=== PATIENT | female | born 1965 | race Two or more races ===

== ENCOUNTER 2017-02-17 22:10 | Emergency (ER) | payer OTHER ==
[2017-02-17 22:43] VITALS: TEMP 98.4
[2017-02-17 23:00] LABS: BASOPHILS % (AUTO) 1 % (0-3); EOSINOPHILS % (AUTO) 3 % (0-9); HEMATOCRIT 39 % (35-47); MEAN CORPUSCULAR HGB CONC 34.3 gm/dl (32.0-36.0); MEAN CORPUSCULAR VOLUME 86 fL (81-99); MONOCYTES % (AUTO) 7.6 % (0-12); NEUTROPHILS % (AUTO) 55.3 % (37-80)
[2017-02-17 23:24] LABS: ALBUMIN 3.7 gm/dl (3.4-5.0); ALT 28 IU/L (14-63); CALCIUM 8.9 mg/dl (8.5-10.1); GLOM FILT RATE 103 mL/min (>60); POTASSIUM 3.5 mMol/L (3.5-5.1); SODIUM 139 mMol/L (136-145); THYROID STIMULATING HORMONE 2.041 uIU/ml (0.358-3.740)
[2017-02-17 23:31] LABS: APPEARANCE,URINE Clear; BILIRUBIN,URINE NEGATIVE (NEGATIVE); COLOR,URINE Light yellow; GLUCOSE, URINE (UA) NEGATIVE (NEGATIVE); KETONES,URINE NEGATIVE (NEGATIVE); LEUKOCYTE ESTERASE ,URINE TRACE (NEGATIVE); NITRATE,URINE NEGATIVE (NEGATIVE); OCCULT BLOOD,URINE TRACE INTACT (NEG-TRACE); UROBILINOGEN,URINE 0.2 (0.2-1.0 EU)
[2017-02-18 00:02] LABS: RBC,URINE 0-1 (0-3AV/HPF)
[2017-02-18 00:03] VITALS: RESP 20
[2017-02-18 00:07] VITALS: BP 146/63; PULSE 54; O2SAT 94
== END 2017-02-17 23:59 | disposition home or self-care (01) | DRG 149 ==
LOC: ED 22:10
DX: R42 Dizziness and giddiness (principal)
CPT/HCPCS: 36415; 71020; 80053; 81001; 84443; 84484; 85025; 93005; 99283; 99284

== ENCOUNTER 2018-01-29 22:41 | Emergency (ER) | payer OTHER ==
[2018-01-29 22:50] VITALS: TEMP 97.6
[2018-01-29] MEDS ORDERED: TRAMADOL HYDROCHLORIDE 50 MG TAB PO ONE (23:08)
[2018-01-29] MEDS ORDERED: TRAMADOL HYDROCHLORIDE 50 MG TAB ONE (23:14)
[2018-01-29 23:31] VITALS: BP 133/74; PULSE 64; RESP 16; O2SAT 97
== END 2018-01-29 23:27 | disposition home or self-care (01) | DRG 563 ==
LOC: ED 22:41
DX: S86.812A Strain of other muscle(s) and tendon(s) at lower leg level, left leg, initial encounter (principal); Y93.02 Activity, running
CPT/HCPCS: 99282; A9270-GY

== ENCOUNTER 2018-08-18 11:45 | Emergency (ER) | payer OTHER ==
[2018-08-18] MEDS ORDERED: ONDANSETRON 4 MG ODT BU ONE (12:24)
[2018-08-18] MEDS ORDERED: MECLIZINE HYDROCHLORIDE 12.5 MG TAB PO ONE (12:24)
[2018-08-18] MEDS ORDERED: ONDANSETRON 4 MG ODT ONE (12:27)
[2018-08-18] MEDS ORDERED: MECLIZINE HYDROCHLORIDE 12.5 MG TAB ONE (12:27)
[2018-08-18] MEDS ORDERED: SCOPOLAMINE 1.5MG PATCH TD SCH (12:30)
[2018-08-18] MEDS ORDERED: SODIUM CHLORIDE 0.9% 1000ML 1,000 ML IV SCH (12:30)
[2018-08-18 12:35] LABS: HEMATOCRIT 44 % (35-47); HEMOGLOBIN 14.8 gm/dl (12.0-15.5); MEAN CORPUSCULAR HGB CONC 33.6 gm/dl (32.0-36.0); MEAN CORPUSCULAR VOLUME 86 fL (81-99); NEUTROPHILS % (AUTO) 77.9 % (37-80)
[2018-08-18 12:36] LABS: BASOPHILS % (AUTO) 1 % (0-3); EOSINOPHILS % (AUTO) 0 % (0-9)
[2018-08-18] MEDS ORDERED: SCOPOLAMINE 1.5MG PATCH TD ONE (12:40)
[2018-08-18 12:44] LABS: CALCIUM 9.6 mg/dl (8.5-10.1); CARBON DIOXIDE 24.4 mEq/L (21-32); CREATININE 0.61 mg/dl (0.60-1.00); POTASSIUM 3.3 mMol/L (3.5-5.1)
[2018-08-18 12:47] VITALS: RESP 18
[2018-08-18] MEDS ORDERED: POTASSIUM CHLORIDE 10 MEQ TER PO ONE (13:50)
[2018-08-18] MEDS ORDERED: ALUMINUM/MAGNESIUM 30 ML SUS PO ONE (13:52)
[2018-08-18] MEDS ORDERED: POTASSIUM CHLORIDE 10 MEQ TER ONE (14:02)
[2018-08-18] MEDS ORDERED: ALUMINUM/MAGNESIUM 30 ML SUS ONE (14:02)
[2018-08-18 15:23] VITALS: BP 138/76; PULSE 60; TEMP 97.3; O2SAT 98
== END 2018-08-18 15:05 | disposition home or self-care (01) | DRG 149 ==
LOC: ED 11:45
DX: R42 Dizziness and giddiness (principal); K21.9 Gastro-esophageal reflux disease without esophagitis; K27.9 Peptic ulcer, site unspecified, unspecified as acute or chronic, without hemorrhage or perforation
CPT/HCPCS: 36415; 74019; 80048; 85025; 96365; 99284; A9270-GY